=== PATIENT | male | born 1985 ===

== ENCOUNTER 2016-12-08 10:44 | Emergency (ER) | payer OTHER ==
[2016-12-08] MEDS ORDERED: Sodium Chloride 0.9% 1,000 ML IV ONE (11:12)
[2016-12-08] MEDS ORDERED: Sodium Chloride 0.9% 1,000 ML ONE (11:26)
--- NOTE | 2016-12-08 11:35 | C.PDOC ---
History Of Present Illness 31-year-old male with no PMHx presents to the emergency department with complaints of epigastric abdominal pain, that is associated with nausea and light headedness since 11:00; Patient denies vomiting, diarrhea, fever, chest pain, shortness of breath, dysuria/hematuria. Patient notes that he was prescribed Truvada two weeks ago by PMD for "HIV Prophylaxis" when he travels. He denies h/o HIV or infectious disease, and denies concern for it. Time Seen by Provider: 12/08/16 10:54 Chief Complaint (Nursing): Abdominal Pain History Per: Patient History/Exam Limitations: no limitations Onset/Duration Of Symptoms: Mins Current Symptoms Are (Timing): Still Present Severity: Mild Location Of Pain/Discomfort: Epigastric Associated Symptoms: Nausea Past Medical History Reviewed: Historical Data, Nursing Documentation, Vital Signs Vital Signs: Last Vital Signs Temp 97.4 F L 12/08/16 12:41 Pulse 71 12/08/16 12:41 Resp 16 12/08/16 12:41 BP 117/75 12/08/16 12:41 Pulse Ox 100 12/08/16 12:41 - Medical History PMH: No Chronic Diseases Family History: States: No Known Family Hx - Social History Hx Alcohol Use: No Hx Substance Use: No - Immunization History Hx Tetanus Toxoid Vaccination: No Hx Influenza Vaccination: No Hx Pneumococcal Vaccination: No Review Of Systems Except As Marked, All Systems Reviewed And Found Negative. Constitutional: Negative for: Fever, Chills Cardiovascular: Negative for: Chest Pain, Palpitations Respiratory: Negative for: Cough, Shortness of Breath Gastrointestinal: Positive for: Nausea, Abdominal Pain. Negative for: Vomiting , Diarrhea Genitourinary: Negative for: Dysuria, Hematuria Physical Exam - Physical Exam Appears: Well, Non-toxic, No Acute Distress Skin: Warm, Dry, No Rash Head: Normacephalic Eye(s): bilateral: Normal Inspection, PERRL, EOMI Oral Mucosa: Moist Neck: Normal, Normal ROM Cardiovascular: Rhythm Regular Respiratory: Normal Breath Sounds, No Rales, No Rhonchi, No Wheezing Gastrointestinal/Abdominal: Normal Exam, Bowel Sounds, Soft, No Tenderness Back: Normal Inspection, No CVA Tenderness Extremity: Normal ROM Neurological/Psych: Oriented x3, Normal Speech, Normal Cognition Gait: Steady ED Course And Treatment - Laboratory Results Result Diagrams: 12/08/16 11:41 12/08/16 11:41 O2 Sat by Pulse Oximetry: 97 (RA) Pulse Ox Interpretation: Normal Progress Note: Bloodwork ordered and reviewed. Patient given IV NS bolus, IV zofran. Reevaluation Time: 12:20 Reassessment Condition: Improved (On reassessment, patient is resting comfortably, states he has no pain. On exam, abdomen is soft and nontender. Blood work unremarkable except for mild elevated on T bili. Patient has normal vitals and is comfortable being discharged home. Symptoms likely secondary to Truvada. He was instructed to follow up with PMD in 1-2 days, and understands he should return to ED if symptoms worsen.) Disposition Counseled Patient/Family Regarding: Studies Performed, Diagnosis, Need For Followup, Rx Given - Disposition Referrals: Kristi Sterling PA-C [Advanced Practice Nurse] - Disposition: HOME/ ROUTINE Disposition Time: 12:20 Condition: STABLE Additional Instructions: FOLLOW UP WITH YOUR DOCTOR IN 1-2 DAYS USE MEDICATION NEEDED FOR NAUSEA DRINK PLENTY OF CLEAR FLUIDS, AND ADVANCE DIET SLOWLY TO BLAND FOODS RETURN TO ER IF SYMPTOMS WORSEN Prescriptions: Ondansetron [Zofran Odt] 4 mg PO Q8 PRN #10 odt PRN Reason: Nausea/Vomiting Instructions: Acute Nausea and Vomiting (ED) Print Language: NIGERIEN - POA Present On Arrival: None - Clinical Impression Clinical Impression: Nausea, Epigastric abdominal pain, Medication side effect - Scribe Statement The provider has reviewed the documentation as recorded by the Becca Bustillos All medical record entries made by the Ofeliaibbrittani were at my direction and personally dictated by me. I have reviewed the chart and agree that the record accurately reflects my personal performance of the history, physical exam, medical decision making, and the department course for this patient. I have also personally directed, reviewed, and agree with the discharge instructions and disposition.
[2016-12-08 11:46] LABS: BASO % 0.3 % (0.0-2.0); EOS # 0.2 K/uL (0.0-0.7); EOS % 2.8 % (0.0-4.0); LYMPH # 1.2 K/uL (1.0-4.3); LYMPH % 21.7 % (20.0-40.0); MEAN CELL VOLUME 61.1 fL (80.0-94.0); MEAN CORPUSCULAR HEMOGLOBIN 19.1 pg (27.0-31.0); MEAN CORPUSCULAR HGB CONC 31.2 g/dL (33.0-37.0); MEAN PLATELET VOLUME 9.1 fL (7.2-11.7); MONO # 0.4 K/uL (0.0-0.8); MONO % 6.9 % (0.0-10.0); NRBC % 0.1 % (0.0-2.0); RED CELL DISTRIBUTION WIDTH 15.6 % (11.5-14.5); WHITE BLOOD COUNT 5.4 K/uL (4.8-10.8)
[2016-12-08 11:55] LABS: CHLORIDE 102 mmol/L (98-107)
[2016-12-08 11:56] LABS: POTASSIUM 4.2 mmol/L (3.6-5.2); SODIUM 139 mmol/L (132-148)
[2016-12-08 11:58] LABS: AST/SGOT 26 U/L (17-59); BILIRUBIN,TOTAL 1.5 mg/dL (0.2-1.3); CARBON DIOXIDE 25 mmol/L (22-30); GFR AFRICAN-AMERICAN > 60
[2016-12-08 11:59] LABS: ALB/GLOB RATIO 1.5 (1.0-2.1); ALKALINE PHOSPHATASE 47 U/L (38-126); ALT/SGPT 30 U/L (21-72); BLOOD UREA NITROGEN 14 mg/dL (9-20); GLUCOSE,RANDOM 85 mg/dL (75-110); TOTAL PROTEIN 7.3 g/dL (6.3-8.3)
[2016-12-08 12:42] VITALS: BP 117/75; PULSE 71; RESP 16; TEMP 97.4
[2016-12-11 03:58] VITALS: O2SAT 97
== END 2016-12-08 12:57 | disposition home or self-care (01) ==
LOC: C.ER 10:44
DX: R10.13 Epigastric pain (principal); R11.0 Nausea; T50.995A Adverse effect of other drugs, medicaments and biological substances, initial encounter
CPT/HCPCS: 80053; 83690; 85025; 96361; 96374; 99284; J2405; J7040